=== PATIENT | male | born 1990 | race Caucasian/White ===

== ENCOUNTER 2020-11-20 12:39 | Emergency (ER) | payer OTHER ==
[2020-11-20 13:46] LABS: BASOPHIL 0.3 % (0-2); HCT 44.3 % (42.0-52.0); HGB 14.9 g/dl (13.2-18.0); LYMPHOCYTE 30.7 % (15-48); MCH 32.5 pg (25.0-31.0); MCHC 33.6 g/dL (32.0-36.0); MCV 96.5 fL (78.0-100.0); MONOCYTE 6.4 % (0-12); MPV 10.4 fL (6.0-9.5); NEUTROPHIL 61.4 % (41-80); NRBC 0; PLT 332 K/uL (150-400); RBC 4.59 M/uL (4.70-6.00); RDW 12.3 % (11.5-14.0); WBC 8.7 K/uL (4.0-10.5)
[2020-11-20 14:08] LABS: BUN/CREAT RATIO (CALC) 15.3 RATIO; CREATININE 0.85 mg/dL (0.67-1.17); POTASSIUM 3.6 mmol/L (3.5-5.1)
== END 2020-11-20 15:53 | disposition home or self-care (01) ==
LOC: FER 12:39
PROVIDERS: Emergency Medicine
DX: G40.909 Epilepsy, unspecified, not intractable, without status epilepticus (principal); F17.210 Nicotine dependence, cigarettes, uncomplicated; Z79.899 Other long term (current) drug therapy
CPT/HCPCS: 36415; 80048; 85025; 99284

== ENCOUNTER 2021-06-27 15:00 | Emergency (ER) | payer OTHER ==
[2021-06-27] MEDS ORDERED: IBUPROFEN600 MG PO (16:40)
[2021-06-27] MEDS ORDERED: CLEOCIN HCL150 MG PO (16:40)
== END 2021-06-27 16:52 | disposition home or self-care (01) ==
LOC: FER 15:00
DX: K04.7 Periapical abscess without sinus (principal); F17.210 Nicotine dependence, cigarettes, uncomplicated
CPT/HCPCS: 99283

== ENCOUNTER 2021-07-25 23:04 | Emergency (ER) | payer OTHER ==
[~2021-07-25 23:04] MED LIST: CLEOCIN HCL150 MG PO; IBUPROFEN600 MG PO
[2021-07-26 00:16] LABS: BASOPHIL 0.4 % (0-2); EOSINOPHIL 0.8 % (0-5); HCT 41.5 % (42.0-52.0); HGB 13.9 g/dl (13.2-18.0); LYMPHOCYTE 23.2 % (15-48); MCH 32.3 pg (25.0-31.0); MCHC 33.5 g/dL (32.0-36.0); MCV 96.5 fL (78.0-100.0); MONOCYTE 6.6 % (0-12); MPV 10.1 fL (6.0-9.5); NEUTROPHIL 68.4 % (41-80); NRBC 0; PLT 365 K/uL (150-400); RDW 12.2 % (11.5-14.0); WBC 16.5 K/uL (4.0-10.5)
[2021-07-26 00:27] LABS: ALBUMIN 3.4 g/dL (3.4-5.0); BILIRUBIN - TOTAL 0.3 mg/dL (0.2-1.0); BUN/CREAT RATIO (CALC) 16.4 RATIO; CREATININE 0.73 mg/dL (0.67-1.17); POTASSIUM 3.9 mmol/L (3.5-5.1); TOTAL PROTEIN 7.4 g/dL (6.4-8.2)
== END 2021-07-26 04:50 | disposition home or self-care (01) ==
LOC: FER 23:04
PROVIDERS: Emergency Medicine
DX: R10.9 Unspecified abdominal pain (principal); F17.200 Nicotine dependence, unspecified, uncomplicated
CPT/HCPCS: 36415; 74018; 80053; 83690; 85025; Q9967

== ENCOUNTER 2021-08-04 20:44 | Emergency (ER) | payer OTHER | END 2021-08-04 22:24 | disposition home or self-care (01) | LOC: FER 20:44 | DX: S66.912A Strain of unspecified muscle, fascia and tendon at wrist and hand level, left hand, initial encounter (principal); F17.210 Nicotine dependence, cigarettes, uncomplicated; W01.198A Fall on same level from slipping, tripping and stumbling with subsequent striking against other object, initial encounter; Y92.009 Unspecified place in unspecified non-institutional (private) residence as the place of occurrence of the external cause | CPT/HCPCS: 73110 ==

== ENCOUNTER 2021-08-12 16:35 | Emergency (ER) | payer OTHER ==
[2021-08-12 17:49] LABS: BASOPHIL 0.3 % (0-2); EOSINOPHIL 0.9 % (0-5); HCT 44.5 % (42.0-52.0); HGB 15.1 g/dl (13.2-18.0); LYMPHOCYTE 31.5 % (15-48); MCH 32.7 pg (25.0-31.0); MCHC 33.9 g/dL (32.0-36.0); MCV 96.3 fL (78.0-100.0); MONOCYTE 6.8 % (0-12); MPV 10.2 fL (6.0-9.5); NEUTROPHIL 60.3 % (41-80); NRBC 0; PLT 349 K/uL (150-400); RBC 4.62 M/uL (4.70-6.00); WBC 12.7 K/uL (4.0-10.5)
[2021-08-12 18:04] LABS: ALBUMIN 4.1 g/dL (3.4-5.0); BILIRUBIN - TOTAL 0.4 mg/dL (0.2-1.0); BUN/CREAT RATIO (CALC) 15.1 RATIO; CREATININE 0.86 mg/dL (0.67-1.17); GLOBULIN (CALCULATION) 4.2 g/dL; POTASSIUM 3.7 mmol/L (3.5-5.1); TOTAL PROTEIN 8.3 g/dL (6.4-8.2)
[2021-08-12 20:32] LABS: BILIRUBIN NEGATIVE (NEGATIVE); BLOOD 2+ Ery/uL (NEGATIVE); CLARITY CLEAR (CLEAR); GLUCOSE (U) NORMAL (NORMAL); LEUKOCYTES NEGATIVE Leu/uL (NEGATIVE); NITRITE NEGATIVE (NEGATIVE); PROTEIN NEGATIVE (NEGATIVE); SPECIFIC GRAVITY <=1.005 (1.001-1.030); UROBILINOGEN 0.2 mg/dL (0.2-1.0); pH 6.5 (5.0-9.0)
[2021-08-12 20:40] LABS: COLOR STRAW (YELLOW)
[2021-08-12 20:41] LABS: URINARY WBC RARE
== END 2021-08-12 21:21 | disposition home or self-care (01) ==
LOC: FER 16:35
PROVIDERS: Emergency Medicine
DX: K59.00 Constipation, unspecified (principal); R31.9 Hematuria, unspecified; F17.210 Nicotine dependence, cigarettes, uncomplicated
CPT/HCPCS: 36415; 74022; 80053; 81001; 83690; 85025; J2405; Q9967

== ENCOUNTER 2021-09-07 19:24 | Emergency (ER) | payer OTHER ==
[2021-09-07 20:00] LABS: BASOPHIL 0.5 % (0-2); EOSINOPHIL 1.7 % (0-5); HCT 41.5 % (42.0-52.0); LYMPHOCYTE 34.4 % (15-48); MCH 32.4 pg (25.0-31.0); MCHC 33.7 g/dL (32.0-36.0); MCV 96.1 fL (78.0-100.0); MONOCYTE 6.9 % (0-12); MPV 10.2 fL (6.0-9.5); NEUTROPHIL 56.1 % (41-80); NRBC 0; PLT 325 K/uL (150-400); RBC 4.32 M/uL (4.70-6.00); RDW 12.1 % (11.5-14.0); WBC 10.6 K/uL (4.0-10.5)
[2021-09-07 20:20] LABS: ALBUMIN 3.7 g/dL (3.4-5.0); ALKALINE PHOSHATASE 93 U/L (46-116); ALT 42 U/L (16-63); AST 31 U/L (15-37); BILIRUBIN - TOTAL 0.2 mg/dL (0.2-1.0); BUN 13 mg/dL (7-18); BUN/CREAT RATIO (CALC) 15.5 RATIO; CHLORIDE 101 mmol/L (98-107); CO2 (BICARBONATE) 29 mmol/L (21-32); CREATININE 0.84 mg/dL (0.67-1.17); GLOBULIN (CALCULATION) 4.1 g/dL; GLUCOSE 112 mg/dL (74-106); POTASSIUM 3.7 mmol/L (3.5-5.1); TOTAL PROTEIN 7.8 g/dL (6.4-8.2)
[2021-09-07 20:20] LABS: AMPHETAMINES NEGATIVE (NEGATIVE); BARBITURATES NEGATIVE (NEGATIVE); ECSTASY (MDMA) NEGATIVE (NEGATIVE); MARIJUANA (THC) NEGATIVE (NEGATIVE); METHADONE NEGATIVE (NEGATIVE); OPIATES NEGATIVE (NEGATIVE); OXYCODONE NEGATIVE (NEGATIVE)
[2021-09-07] MEDS ORDERED: AUGMENTIN 875-1 EACH PO (20:33)
[2021-09-07] MEDS ORDERED: IBUPROFEN800 MG PO (20:33)
[2021-09-07] MEDS ORDERED: NORCO 5-325 TA1 EACH PO (20:33)
== END 2021-09-07 20:50 | disposition home or self-care (01) ==
LOC: FER 19:24
PROVIDERS: Emergency Medicine Emergency Medical Services
DX: R20.2 Paresthesia of skin (principal); R42 Dizziness and giddiness; R06.89 Other abnormalities of breathing; T40.2X5A Adverse effect of other opioids, initial encounter; F20.9 Schizophrenia, unspecified; F17.200 Nicotine dependence, unspecified, uncomplicated
CPT/HCPCS: 36415; 80053; 80305; 83735; 85025; 93005; G0480; J1885; Q0163